=== PATIENT | female | born 1985 | race Caucasian/White ===

== ENCOUNTER 2016-03-04 13:51 | Emergency (ER) | payer OTHER ==
[~2016-03-04] VITALS: Ht 172.7 cm; Wt 93.8 kg
[~2016-03-04 13:51] MED LIST: ADVAIR 250/501 DISK IH; CYANOCOBALAM1000 MCG PO; LEVOTHYROXINE88 MCG PO; PREDNISONE20 MG PO; TRAMADOL HCL50 MG PO; TYLENOL COLD M1 EAC1 PO; VENTOLIN HFA18 GM IH; ZYRTEC10 M2 PO
[2016-03-04] MEDS ORDERED: ANAPROX DS550 M1 PO (16:27)
[2016-03-04 16:48] VITALS: BP 126/75
== END 2016-03-04 16:55 | disposition home or self-care (01) ==
LOC: EME 13:51
DX: S63.501A Unspecified sprain of right wrist, initial encounter (principal); W10.8XXA Fall (on) (from) other stairs and steps, initial encounter; J45.909 Unspecified asthma, uncomplicated; E03.9 Hypothyroidism, unspecified
CPT/HCPCS: 73080; 73090; 73110; 99281; 99284

== ENCOUNTER 2016-03-24 18:11 | Emergency (ER) | payer OTHER ==
[~2016-03-24] VITALS: Ht 172.7 cm; Wt 95.4 kg
[~2016-03-24 18:11] MED LIST changes: +ANAPROX DS550 M1 PO
[2016-03-24] MEDS ORDERED: ULTRACET1 TABLET PO (19:59)
[2016-03-24] MEDS ORDERED: ZOFRAN4 MG PO (20:24)
[2016-03-24] MEDS ORDERED: NORCO 5/3251 TABLET PO (20:30)
[2016-03-24 20:36] VITALS: BP 120/87
== END 2016-03-24 20:37 | disposition home or self-care (01) ==
LOC: EME 18:11
DX: K08.89 Other specified disorders of teeth and supporting structures (principal); K02.9 Dental caries, unspecified
CPT/HCPCS: 99281; 99283

== ENCOUNTER 2016-10-09 21:49 | Emergency (ER) | payer OTHER ==
[~2016-10-09] VITALS: Ht 172.7 cm; Wt 93.3 kg
[~2016-10-09 21:49] MED LIST changes: +NORCO 5/3251 TABLET PO; +ULTRACET1 TABLET PO; +ZOFRAN4 MG PO
[2016-10-09] MEDS ORDERED: TRAMADOL HCL50 MG PO (23:13)
[2016-10-10] MEDS ORDERED: PERCOCET 5/31 TABLET PO (00:28)
[2016-10-10 00:31] VITALS: BP 115/82
== END 2016-10-10 00:32 | disposition home or self-care (01) ==
LOC: EME 21:49
DX: K02.9 Dental caries, unspecified (principal); K03.81 Cracked tooth; J45.909 Unspecified asthma, uncomplicated; Z87.891 Personal history of nicotine dependence
CPT/HCPCS: 99281; 99283

== ENCOUNTER 2017-01-08 12:41 | Emergency (ER) | payer OTHER ==
[~2017-01-08] VITALS: Ht 172.7 cm; Wt 96.2 kg
[~2017-01-08 12:41] MED LIST changes: +PERCOCET 5/31 TABLET PO
[2017-01-08 12:54] VITALS: BP 116/84
[2017-01-08] MEDS ORDERED: ULTRAM50 MG PO (13:19)
[2017-01-08] MEDS ORDERED: PEN-VEE K,VEET500 MG PO (13:19)
[2017-01-08] MEDS ORDERED: NAPROSYN500 MG PO (13:19)
== END 2017-01-08 14:04 | disposition home or self-care (01) ==
LOC: EME 12:41
DX: K04.7 Periapical abscess without sinus (principal); K02.9 Dental caries, unspecified
CPT/HCPCS: 99281; 99284

== ENCOUNTER 2017-04-03 08:45 | Emergency (ER) | payer OTHER ==
[~2017-04-03] VITALS: Ht 172.7 cm; Wt 97.1 kg
[~2017-04-03 08:45] MED LIST changes: +NAPROSYN500 MG PO; +PEN-VEE K,VEET500 MG PO; +ULTRAM50 MG PO
[2017-04-03 12:31] VITALS: BP 128/87
== END 2017-04-03 12:32 | disposition home or self-care (01) ==
LOC: EME 08:45
PROVIDERS: Emergency Medicine
DX: J06.9 Acute upper respiratory infection, unspecified (principal); J45.909 Unspecified asthma, uncomplicated; D64.9 Anemia, unspecified; Z79.51 Long term (current) use of inhaled steroids
CPT/HCPCS: 71046; 87502; 99281; 99284

== ENCOUNTER 2017-05-01 12:15 | Emergency (ER) | payer OTHER ==
[~2017-05-01] VITALS: Ht 172.7 cm; Wt 97.8 kg
[2017-05-01] MEDS ORDERED: TESSALON PERLE100 MG PO (14:29)
[2017-05-01 14:41] VITALS: BP 120/75
== END 2017-05-01 14:42 | disposition home or self-care (01) ==
LOC: EME 12:15
DX: J06.9 Acute upper respiratory infection, unspecified (principal); J45.909 Unspecified asthma, uncomplicated; E07.9 Disorder of thyroid, unspecified
CPT/HCPCS: 99281; 99284

== ENCOUNTER 2017-06-23 18:14 | Emergency (ER) | payer OTHER ==
[~2017-06-23] VITALS: Ht 172.7 cm; Wt 98.6 kg
[~2017-06-23 18:14] MED LIST changes: +TESSALON PERLE100 MG PO
[2017-06-23] MEDS ORDERED: DELTASONE20 M1 PO (20:16)
[2017-06-23] MEDS ORDERED: AMOXICILLIN875 MG PO (20:16)
[2017-06-23 20:35] VITALS: BP 130/84
== END 2017-06-23 20:33 | disposition home or self-care (01) ==
LOC: EME 18:14
DX: J01.90 Acute sinusitis, unspecified (principal); F17.200 Nicotine dependence, unspecified, uncomplicated
CPT/HCPCS: 87651 90; 99281; 99283; J7512

== ENCOUNTER 2017-07-08 22:29 | Emergency (ER) | payer OTHER ==
[~2017-07-08] VITALS: Ht 172.7 cm; Wt 91.8 kg
[~2017-07-08 22:29] MED LIST changes: +AMOXICILLIN875 MG PO; +DELTASONE20 M1 PO
[2017-07-08 22:35] VITALS: BP 128/83
[2017-07-08] MEDS ORDERED: FLONASE16 G1 BOTH NARES (23:08)
== END 2017-07-09 00:09 | disposition home or self-care (01) ==
LOC: EME 22:29
DX: J45.909 Unspecified asthma, uncomplicated (principal); Z03.6 Encounter for observation for suspected toxic effect from ingested substance ruled out; Y93.11 Activity, swimming; Y92.34 Swimming pool (public) as the place of occurrence of the external cause; R09.81 Nasal congestion; Z87.891 Personal history of nicotine dependence
CPT/HCPCS: 99281; 99284